=== PATIENT | male | born 1935 | race Caucasian/White ===

== ENCOUNTER 2023-07-27 17:41 | Emergency (ER) | payer MEDICARE, BC, SELFPAY ==
[2023-07-27 17:46] VITALS: BP 144/81
--- NOTE | 2023-07-27 18:18 | ED.GENMED ---
History of Present Illness
General
Chief Complaint: Nose Bleed
Source: patient
Exam Limitations: none
Time Seen by Provider: 07/27/23 18:06
Nursing documentation reviewed up to this point in time: agreed with
Travel History
Have you had any contact with someone who has COVID-19?: No
Do you have any symptoms of coronavirus? Fever > 100 degrees, chills, cough, shortness of breath, sore throat, loss of taste or smell, muscle aches, or headache?: No
History of Present Illness
History of Present Illness:
Patient is a 7-year-old male on Pradaxa and Plavix presents with bleeding from his right nose. Patient started bleeding at 12 PM this afternoon. He has packed and believes it is better controlled now. He denies any lightheaded dizziness. Patient
has no other complaints. Patient has had intermittent mild nosebleeds since being started on Pradaxa and Plavix in May however he was not able to stop this 1.
Past History
Past History
ED Past Medical History: Arrthythmia (Atrial fib), CAD, Cancer (Lung CA), CHF, COPD, CVA, HTN, Hypercholesterolemia, ID and Other (diverticulitis, renal calculus, )
ED Past Surgical History: Appendectomy, Cardiac (Ablation, Stent, ), Cholecystectomy, Orthopedic (Randall knee replacements), Tonsilectomy and Other (Randall cataracts, Various vein)
Social History
Tobacco: Former smoker
Alcohol: None
Drug: None
Personal:
Living: with family
Employment: Employed
Family History
Family History: Hypertension; Negative Early CAD
Review of Systems
Review of Systems
Allergies reviewed?: Yes
EENT: Reports other (right nares nose bleed )
Respiratory: Reports no symptoms
ABD/GI: Reports no symptoms
: Reports no symptoms
Musculoskeletal: Reports no symptoms
Skin: Reports no symptoms
Neurological: Reports no symptoms
Psychiatric: Reports no symptoms
Phy Exam
General Physical Exam
General Presentation: no apparent distress
General age: appears stated age
General Skin: warm and dry
General Habitus: elderly
General Mental: alert
ENT Exam
ENT Exam: EOMI, neck supple and other (+ bright red mild ooze from right nares )
Eye Exam
Eye Exam: PERRL and EOMI
Neurological Exam
Neurological Exam: alert and oriented x3
Musculoskeletal Exam
Musculoskeletal Exam: full ROM
Skin Exam
Skin Exam: normal color and warm/dry
Psychiatric Exam
Psychiatric Exam: normal mood/affect
Course
Orders/Labs/Results
Orders:
Orders
07/27/23 20:03
Vital Signs- Treatment ONCE
Frequency: Once
Vital Signs
Initial and Last Documented VS:
Initial Vital Signs
Temp Pulse Resp BP Pulse Ox
97.7 F 108 16 144/81 100
07/27/23 17:46 07/27/23 17:46 07/27/23 17:46 07/27/23 17:46 07/27/23 17:46
Last Documented Vital Signs
Temp Pulse Resp BP Pulse Ox
97.7 F 70 17 129/53 98
07/27/23 17:46 07/27/23 20:10 07/27/23 20:10 07/27/23 20:10 07/27/23 20:10
Procedures
Nosebleed
Drug treatment: Epinephrine
Treatment: Merocel packing
Post treatment bleeding: none- good control
MDM/Problems Addressed
Differential Diagnosis Includes:
Not limited to epistaxis
MDM/Problems Addressed:
Patient is 87-year-old male who is on both Pradaxa and Plavix presenting with right nose bleed. Patient no acute distress looks well stable vital signs. Patient was packed with Murocel Toller procedure well. Patient was monitored here no further
bleeding. Patient no acute distress no complaints of feeling weak fatigued stable vitals. Will DC with outpatient ENT.
*Pulse Oximetry
Patient hypoxic: no
*Critical Care Note
Total Time (30-74mins, 75-104mins- exclusive of procedures): Not Applicable
ED Attending Note
-
Portions of this chart may have been created with voice recognition software.� Occasional wrong word or��sound alike� substitutions may have occurred due to the inherent limitations of voice recognition software.
Discharge Plan
Departure
Patient Disposition: Home (Routine Discharge)
Date of Disposition: 07/27/23
Time of Disposition: 20:14
Patient with high blood pressure during this ER visit?: Yes
Condition: Fair
Covid-19: Not Applicable
Discharge Problem:
Acute anterior epistaxis
Instructions: Nosebleeds (DC), BLOOD PRESSURE
Prescriptions:
No Action
ascorbic acid (vitamin C) [Vitamin C] 500 MG tablet
500 mg PO QPM
ezetimibe 10 MG tablet
10 mg PO DAILY
Repatha Syringe 140 MG/ML syringe
140 mg SQ Q2W
omega 5-fye-thq-fish oil [Fish Oil] 1,000 mg (120 mg-180 mg) Capsule
1 cap PO DAILY
cyanocobalamin (vitamin B-12) 1,000 mcg Tablet
1,000 mcg PO DAILY
therapeutic multivitamin Tablet
1 tab PO DAILY
benzonatate 100 mg Capsule
100 mg PO TIDPRN PRN (Reason: cough)
fluticasone propion-salmeterol [Advair HFA] 115-21 mcg/actuation Hfa Aerosol Inhaler
2 puff INHALATION R BID
cholecalciferol (vitamin D3) 25 mcg (1,000 unit) Tablet
25 mcg PO QPM
albuterol sulfate 90 mcg/actuation Hfa Aerosol Inhaler
2 puff inhalation R Q4HPRN PRN (Reason: sob or wheezing) Qty: 6.7 0RF
polyethylene glycol 3350 [Miralax] 17 gram Powder In Packet
17 g PO DAILYPRN PRN (Reason: cpnstipation)
psyllium Packet
1 packet PO QPM
Farxiga 10 mg Tablet
10 mg PO DAILY Qty: 30 1RF
furosemide 40 mg Tablet
40 mg PO DAILY Qty: 30 1RF
aspirin [Children's Aspirin] 81 mg Tablet,Chewable
81 mg PO DAILY Qty: 5 0RF
Patient Comments:
06/10/2023, patient filled this medication on 06/07/2023 for a 5-day supply.
Rx Instructions:
06/10/2023, start date for this prescription is 06/08/23 and last dose is to be taken on 06/12/23.
clopidogrel 75 mg Tablet
75 mg PO DAILY Qty: 30 6RF
metoprolol succinate 25 mg Tablet Extended Release 24 Hr
25 mg PO DAILY@2000 Qty: 30 1RF
lisinopril 2.5 mg Tablet
2.5 mg PO DAILY Qty: 30 1RF
dabigatran etexilate [Pradaxa] 150 MG capsule
150 mg PO BID Qty: 60 6RF
diltiazem HCl 180 mg Capsule,Extended Release 24hr
180 mg PO HS
codeine-guaifenesin 10-100 mg/5 mL Liquid
10 ml PO Q4HPRN PRN (Reason: cough)
Patient Comments:
06/10/2023, patient filled this medication on 05/22/2023 for a quantity of 240 according to PDMP.
temazepam 30 mg capsule
30 mg PO HS
Patient Comments:
06/10/2023, patient filled this medication on 05/06/2023 for 30 capsules according to PDMP.
acetaminophen [Tylenol Extra Strength] 500 mg Tablet
1,000 mg PO BIDPRN PRN (Reason: mild pain)
Referrals:
Donny Mueller MD [Family Provider] -
Ryan,Iris J., MD [Active] -
Activity Restrictions/Additional Instructions:
Keep packing in place until seen by ENT. Please call tomorrow to make an appointment for Monday to have packing removed. Return here if any worsening of symptoms of bleeding with packing, lightheadedness dizziness or any further concerns.
Interventions
Interventions:
*Nursing Disposition Last Done: 07/27/23 20:46
ED-EENT Assessment Last Done: 07/27/23 19:53
Discharge Date and Time
Discharge Date/Time: 07/27/23 20:46
[2023-07-27 20:10] VITALS: BP 129/53
== END 2023-07-27 20:46 | disposition home or self-care (01) ==
LOC: EMR 17:41
PROVIDERS: EMERGENCY PHYSICIAN Emergency Medicine; FAMILY PHYSICIAN Family Medicine
DX: R04.0 Epistaxis (principal); I48.91 Unspecified atrial fibrillation; I25.10 Atherosclerotic heart disease of native coronary artery without angina pectoris; I11.0 Hypertensive heart disease with heart failure; I50.9 Heart failure, unspecified; E78.00 Pure hypercholesterolemia, unspecified; J44.9 Chronic obstructive pulmonary disease, unspecified; I25.2 Old myocardial infarction; Z79.01 Long term (current) use of anticoagulants; Z82.49 Family history of ischemic heart disease and other diseases of the circulatory system; Z85.118 Personal history of other malignant neoplasm of bronchus and lung; Z86.73 Personal history of transient ischemic attack (TIA), and cerebral infarction without residual deficits; Z87.442 Personal history of urinary calculi; Z87.891 Personal history of nicotine dependence; Z90.49 Acquired absence of other specified parts of digestive tract; Z95.5 Presence of coronary angioplasty implant and graft; Z96.653 Presence of artificial knee joint, bilateral
CPT/HCPCS: 99282; 30901

== ENCOUNTER → 2023-07-31 13:28 | Outpatient (REF) | payer MEDICARE, BC, SELFPAY | LOC: RCS 13:28 | PROVIDERS: ATTENDING PHYSICIAN Internal Medicine Cardiovascular Disease; FAMILY PHYSICIAN Family Medicine | DX: I25.10 Atherosclerotic heart disease of native coronary artery without angina pectoris (principal); I48.19 Other persistent atrial fibrillation | CPT/HCPCS: 93225; 93226 ==

== ENCOUNTER → 2023-09-04 10:49 | Outpatient (REF) | payer MEDICARE, BC, SELFPAY | LOC: DHCBC MAIN 10:49 | PROVIDERS: ATTENDING PHYSICIAN Nurse Practitioner; FAMILY PHYSICIAN Family Medicine | DX: I21.4 Non-ST elevation (NSTEMI) myocardial infarction (principal); I25.10 Atherosclerotic heart disease of native coronary artery without angina pectoris | CPT/HCPCS: 93308 ==